=== PATIENT | male | born 1980 | race American Indian/Alaskan Native ===

== ENCOUNTER 2017-08-13 16:32 | Emergency (ER) | payer SELFPAY ==
[2017-08-13 17:09] VITALS: BP 121/79
[2017-08-13] MEDS ORDERED: MOTRIN PO ONE (19:03)
--- NOTE | 2017-08-13 19:03 | Emergency Department Report ---
Blank Doc - Documentation Documentation: Patient is a 37-year-old black male presenting with left foot pain. Patient states almost a week ago palate dropped on his foot he has pain at the base of the great toe. Patient still is able to wear shoes and can walk produces pain is getting worse. X-ray be done to rule out avulsion fracture.
--- NOTE | 2017-08-13 21:04 | XRay Report ---
FINAL REPORT PROCEDURE: XR FOOT 3+V LT TECHNIQUE: LEFT foot radiographs, AP, lateral, and oblique views. CPT 02895 HISTORY: crush injury at base of great toe, LEFT FOOT COMPARISON: No prior studies are available for comparison. FINDINGS: Fracture (s) and/or Dislocation(s): None . Alignment: Normal . Joint space(s): Normal . Soft tissues: Normal . Bone mineralization: Normal . Foreign bodies: None . Calcaneal spurring: None . IMPRESSION: Normal Examination .
--- NOTE | 2017-08-13 21:13 | Emergency Department Report ---
ED Extremity Problem HPI - General Chief complaint: Extremity Injury, Lower Stated complaint: PAIN IN LEFT BIG TOE Time Seen by Provider: 08/13/17 18:51 Source: patient Mode of arrival: Ambulatory Limitations: No Limitations - History of Present Illness Initial comments: Patient is a 37-year-old black male presenting with left foot pain. Patient states almost a week ago palate dropped on his foot he has pain at the base of the great toe. Patient still is able to wear shoes and can walk produces pain is getting worse. X-ray be done to rule out avulsion fracture. MD Complaint: extremity pain, extremity swelling -: week(s) (1) Location: left History of Same: No -: Yes arthralgia Radiation: none Severity scale (0 -10): 3 Quality: aching Consistency: intermittent Improves with: rest Worsens with: walking Associated Symptoms: denies other symptoms - Related Data Previous Rx's Medication Instructions Recorded Last Taken Type Ibuprofen [Motrin 800 MG tab] 800 mg PO Q8HR PRN #30 tablet 08/13/17 Unknown Rx Allergies Allergy/AdvReac Type Severity Reaction Status Date / Time No Known Allergies Allergy Unverified 08/13/17 17:05 ED Review of Systems ROS: Stated complaint: PAIN IN LEFT BIG TOE Other details as noted in HPI Comment: All other systems reviewed and negative Musculoskeletal: joint swelling, arthralgia ED Past Medical Hx - Past Medical History Previous Medical History?: No - Surgical History Past Surgical History?: Yes Additional Surgical History: RIGHT HAND SURGERY - Social History Smoking Status: Current Every Day Smoker Substance Use Type: Alcohol - Medications Home Medications: Home Medications Medication Instructions Recorded Confirmed Last Taken Type Ibuprofen [Motrin 800 MG tab] 800 mg PO Q8HR PRN #30 tablet 08/13/17 Unknown Rx ED Physical Exam - General Limitations: No Limitations General appearance: alert, in no apparent distress - Head Head exam: Present: atraumatic, normocephalic - Expanded Lower Extremity Exam Right Foot/Toe exam: Present: normal inspection, full ROM, tenderness (first metatarsal ). Absent: swelling, abrasion Neuro vascular tendon exam: Present: no vascular compromise. Absent: pulse deficit, extremity cold to touch, pallor Gait: Positive: observed and normal - Neurological Exam Neurological exam: Present: alert, oriented X3 - Psychiatric Psychiatric exam: Present: normal affect, normal mood - Skin Skin exam: Present: warm, dry, intact, normal color. Absent: rash ED Course Vital Signs 08/13/17 17:05 Temperature 98.5 F Pulse Rate 76 Respiratory 18 Rate Blood Pressure 121/79 O2 Sat by Pulse 99 Oximetry ED Medical Decision Making - Radiology Data Radiology results: report reviewed, image reviewed FINDINGS: Fracture (s) and/or Dislocation(s): None . Alignment: Normal . Joint space(s): Normal . Soft tissues: Normal . Bone mineralization: Normal . Foreign bodies: None . Calcaneal spurring: None . IMPRESSION: Normal Examination . Transcribed By: [facility] Dictated By: MELISSA OTERO Electronically Authenticated By: MELISSA OTERO Signed Date/Time: 08/13/172058 DD/ 58 TD/TT: 08/13/172058 - Medical Decision Making Patient has been evaluated but this provider as well as Dr. Valladares. X-ray of foot shows no abnormalities/normal examination. This patient he can take ibuprofen for pain. He can follow primary care provider if symptoms persist or gets worse. Critical care attestation.: If time is entered above; I have spent that time in minutes in the direct care of this critically ill patient, excluding procedure time. ED Disposition Clinical Impression: Contusion of foot, right Qualifiers: Encounter type: initial encounter Qualified Code(s): S90.31XA - Contusion of right foot, initial encounter Disposition: DC-01 TO HOME OR SELFCARE Is pt being admited?: No Does the pt Need Aspirin: No Condition: Stable Instructions: Foot Contusion (ED) Additional Instructions: Please take ibuprofen as prescribed. If symptoms persist or gets worse please follow up with her primary care provider. Prescriptions: Ibuprofen [Motrin 800 MG tab] 800 mg PO Q8HR PRN #30 tablet PRN Reason: Pain Referrals: [facility] [Provider Group] - 3-5 Days Forms: Work/School Release Form(ED)
== END 2017-08-13 21:30 | disposition home or self-care (01) ==
LOC: ED 16:32
DX: S90.31XA Contusion of right foot, initial encounter (principal); F17.200 Nicotine dependence, unspecified, uncomplicated; X58.XXXA Exposure to other specified factors, initial encounter; Y93.89 Activity, other specified; Y92.89 Other specified places as the place of occurrence of the external cause; Y99.8 Other external cause status
CPT/HCPCS: 99283

== ENCOUNTER 2019-01-01 11:02 | Emergency (ER) | payer SELFPAY ==
[2019-01-01 11:26] VITALS: BP 137/83
--- NOTE | 2019-01-01 11:28 | Event Note ---
ED Screening Note Date of service: 01/01/19 Time: 11:24 ED Screening Note: This is a 38 y.o. M. that presents to the ER feeling stressed out. Patient states his father last week and he is stressed out mentally and seeking help. Reports feeling weak, tired, and restless. Current smoker. Denies SI/HI. This initial assessment/diagnostic orders/clinical plan/treatment(s) is/are subject to change based on patients health status, clinical progression and re- assessment by fellow clinical providers in the ED. Further treatment and workup at subsequent clinical providers discretion. Patient/guardian urged not to elope from the ED as their condition may be serious if not clinically assessed and managed. Initial orders include:
[2019-01-01 12:50] LABS: Hematocrit 44.1 % (35.5-45.6); Hemoglobin 14.7 gm/dl (11.8-15.2); Mean Corpuscular HGB Conc 33 % (32-34); Mean Corpuscular Volume 94 fl (84-94); Platelet Count 204 K/mm3 (140-440); Red Cell Distribution Width 14.5 % (13.2-15.2)
[2019-01-01 13:12] LABS: Alanine Aminotransferase 10 units/L (7-56); Albumin 4.3 g/dL (3.9-5); BUN/Creatinine Ratio 14; Blood Urea Nitrogen 13 mg/dL (9-20); Calcium 9.1 mg/dL (8.4-10.2); Hemolysis Index 12
--- NOTE | 2019-01-01 14:53 | Emergency Department Report ---
ED General Adult HPI - General Chief complaint: Medical Clearance Stated complaint: EXHAUSTION/STRESS Time Seen by Provider: 01/01/19 11:23 Source: patient Mode of arrival: Ambulatory Limitations: No Limitations - History of Present Illness Initial comments: 38 y.o ramsey, who presents to ER with the complaints of feeling fatigue, weak. He states that he recently lost his father and has been under a lot of stress and pressure. He states he has been unable to sleep and working long hours. Pt. c/o dizziness, exhaustion and unwell feeling. Pt. denies SI or HI - Related Data Previous Rx's Medication Instructions Recorded Last Taken Type Ibuprofen [Motrin 800 MG tab] 800 mg PO Q8HR PRN #30 tablet 08/13/17 Unknown Rx Allergies Allergy/AdvReac Type Severity Reaction Status Date / Time No Known Allergies Allergy Unverified 08/13/17 17:05 ED Review of Systems ROS: Stated complaint: EXHAUSTION/STRESS Other details as noted in HPI Comment: All other systems reviewed and negative Respiratory: denies: cough, orthopnea Cardiovascular: denies: palpitations, dyspnea on exertion, orthopnea Genitourinary: denies: urgency, dysuria Musculoskeletal: denies: back pain Neurological: weakness ED Past Medical Hx - Past Medical History Previous Medical History?: No - Surgical History Past Surgical History?: Yes Additional Surgical History: RIGHT HAND SURGERY - Social History Smoking Status: Current Every Day Smoker Substance Use Type: None - Medications Home Medications: Home Medications Medication Instructions Recorded Confirmed Last Taken Type Ibuprofen [Motrin 800 MG tab] 800 mg PO Q8HR PRN #30 tablet 08/13/17 Unknown Rx ED Physical Exam - General Limitations: No Limitations General appearance: alert, in no apparent distress - Head Head exam: Present: atraumatic, normocephalic - Eye Eye exam: Present: normal appearance, PERRL, EOMI Pupils: Present: normal accommodation - ENT ENT exam: Present: normal exam, normal orophraynx - Neck Neck exam: Present: normal inspection - Respiratory Respiratory exam: Present: normal lung sounds bilaterally - Cardiovascular Cardiovascular Exam: Present: regular rate, normal rhythm - GI/Abdominal GI/Abdominal exam: Present: soft, normal bowel sounds - Neurological Exam Neurological exam: Present: alert, oriented X3, CN II-XII intact - Skin Skin exam: Present: warm ED Course Vital Signs 09/27/19 11:24 Temperature 97.8 F Pulse Rate 87 Respiratory 16 Rate Blood Pressure 137/83 [Left] O2 Sat by Pulse 99 Oximetry ED Medical Decision Making - Lab Data Result diagrams: 01/01/19 12:35 01/01/19 12:35 Critical care attestation.: If time is entered above; I have spent that time in minutes in the direct care of this critically ill patient, excluding procedure time. ED Disposition Clinical Impression: Generalized weakness, Dysthymia Disposition: DC-01 TO HOME OR SELFCARE Is pt being admited?: No Does the pt Need Aspirin: No Condition: Stable Instructions: Weakness (ED), Fatigue (ED) Referrals: PRIMARY CARE, [Primary Care Provider] - 3-5 Days Forms: Work/School Release Form(ED)
[2019-01-01 15:05] LABS: Bilirubin,Urine NEG (Negative); Blood,Urine SM (Negative); Color,Urine Yellow (Yellow); Mucus,Urine FEW /HPF; Protein,Urine <15 mg/dL mg/dL (Negative); Urobilinogen,Urine < 2.0 mg/dL (<2.0)
[2019-01-01 15:12] LABS: Amphetamine Screen,Urine PRESUMPTIVE NEGATIVE; Benzodiazepines Screen,Urine PRESUMPTIVE NEGATIVE; Cannabinoid Screen,Urine PRESUMPTIVE NEGATIVE; Cocaine Screen,Urine PRESUMPTIVE NEGATIVE; Methadone Screen,Urine PRESUMPTIVE NEGATIVE; Opiate Screen,Urine PRESUMPTIVE NEGATIVE
== END 2019-01-01 15:06 | disposition home or self-care (01) ==
LOC: ED 11:02
DX: F34.1 Dysthymic disorder (principal); R53.1 Weakness; F17.200 Nicotine dependence, unspecified, uncomplicated; Z98.890 Other specified postprocedural states
CPT/HCPCS: 36415; 80053; 80307; 80320; 81001; 84443; 85027; G0480

== ENCOUNTER 2020-03-15 16:50 | Emergency (ER) | payer SELFPAY ==
[2020-03-15 17:00] VITALS: BP 120/84
--- NOTE | 2020-03-15 17:48 | Emergency Department Report ---
Chief Complaint: Weakness Stated Complaint: NOT FEELING WELL, NEED TO BE SCREENED Time Seen by Provider: 03/15/20 17:42 - HPI History of Present Illness: Patient is a 39-year-old male presents emergency room with complaints of left shoulder pain that began a few days ago. 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 He denies any fall or injury. He denies any numbness or weakness. He denies an y neck pain, chest pain, shortness of breath. He is ambulatory without difficulty. He denies ever injuring the past. No past medical history. No allergies to medications. Vitals are normal On exam: Non toxic appearing, no acute distress atraumatic, normocephalic normal appearance of the eyes,, EOMI, no periorbital edema or ecchymosis moist mucus membranes regular heart rate and rhythm, no gallops, no rubs, no murmurs breath sounds are clear bilaterally, no w/r/r Full range of motion of the left upper extremity, he has pain elicited upon full flexion of the shoulder, no bony tenderness palpation, no sulcus sign, clavicles are equal, no clavicular tenderness palpation, no edema, no erythema, no skin changes, neurovascularly intact A&O x4, no focal neuro deficit skin is warm, dry, intact Symptoms likely related to rotator cuff tendinitis as patient has pain upon lifting the arm above the head He has no clinical signs of acute fracture or dislocation, he has had no trauma No signs of septic joint or DVT. No signs of arterial occlusion This is musculoskeletal pain worse with movement Advised patient May alternate Tylenol or ibuprofen as needed for discomfort. May use ice pack, heating pad, rest, Epsom salt bath. Avoid lifting above the head. Follow-up with orthopedic doctor. Follow-up with a primary care doctor. Return to emergency room for any new or worsening symptoms. Patient referred to the appropriate resources Discussed very strict return precautions with patient Medical screening examination performed and there is no threat to life or limb at this time - Exam Vital Signs: Vital Signs 03/15/20 16:57 Temperature 98.1 F Pulse Rate 83 Respiratory 18 Rate Blood Pressure 120/84 O2 Sat by Pulse 95 Oximetry MSE screening note: Focused history and physical exam performed. ED Disposition for MSE Clinical Impression: Left shoulder pain Qualifiers: Chronicity: acute Qualified Code(s): M25.512 - Pain in left shoulder Disposition: MED SCREENING EXAM-LEFT Is pt being admited?: No Does the pt Need Aspirin: No Condition: Stable Instructions: Rotator Cuff Tendinitis Additional Instructions: May alternate Tylenol or ibuprofen as needed for discomfort. May use ice pack, heating pad, rest, Epsom salt bath. Avoid lifting above the head. Follow-up with orthopedic doctor. Follow-up with a primary care doctor. Return to emergency room for any new or worsening symptoms. Referrals: SARAH EVERETT MD [Staff Physician] - 2-3 Days [facility] [Provider Group] - 2-3 Days REANNA ZIMMERMAN MD [Staff Physician] - 2-[address] [facility] [Provider Group] - 2-3 Days Time of Disposition: 17:47 Print Language: POLISH
== END 2020-03-15 18:00 | disposition left against medical advice (07) ==
LOC: ED 16:50
DX: M25.512 Pain in left shoulder (principal); Z53.21 Procedure and treatment not carried out due to patient leaving prior to being seen by health care provider

== ENCOUNTER 2020-10-31 16:56 | Emergency (ER) | payer SELFPAY ==
[2020-10-31 18:12] VITALS: BP 126/90
--- NOTE | 2020-10-31 18:51 | Emergency Department Report ---
Chief Complaint: Dyspnea/Respdistress Stated Complaint: CHILLS FOR 3 DAYS Time Seen by Provider: 10/31/20 18:49 - HPI History of Present Illness: Patient is a 40-year-old male presents emergency room stating that he wants clearance to go back to work. He states that he called out of work 3 days ago secondary to chills, generalized body aches, subjective fever, dry cough. He states his symptoms have resolved now and he just wants to be cleared to return to work because his work advised him that he needed to be seen prior to returning. He is currently asymptomatic. No past medical history. No allergies to medications. He is a smoker. Vitals are normal, he is afebrile, no hypoxia On exam: Non toxic appearing, no acute distress atraumatic, normocephalic normal appearance of the eyes, EOMI, no periorbital edema or ecchymosis moist mucus membranes regular heart rate and rhythm, no gallops, no rubs, no murmurs breath sounds are clear bilaterally, no w/r/r, no respiratory distress, no accessory muscle use, no stridor A&O x4, no focal neuro deficit skin is warm, dry, intact Patient is presenting for work clearance He states he called out of work 3 days ago due to URI symptoms He reports that he is currently asymptomatic Advised patient he would need to follow-up with a primary care doctor for work clearance Advised patient Please follow-up with your primary care doctor. Recommend for you to get outpatient COVID-19 testing and quarantine as necessary, please follow CDC and your jobs guidelines. Return to emergency room for any new or worsening symptoms. Medical screen examination performed and there is no threat to life or limb at this time - Exam Vital Signs: Vital Signs 10/31/20 18:07 Temperature 98.8 F Pulse Rate 76 Respiratory 18 Rate Blood Pressure 126/90 O2 Sat by Pulse 100 Oximetry MSE screening note: Focused history and physical exam performed. ED Disposition for MSE Clinical Impression: Encounter for medical screening examination Disposition: DC-01 TO HOME OR SELFCARE Is pt being admited?: No Does the pt Need Aspirin: No Condition: Stable Additional Instructions: Please follow-up with your primary care doctor. Recommend for you to get outpatient COVID-19 testing and quarantine as necessary, please follow CDC and your jobs guidelines. Return to emergency room for any new or worsening symptoms. Referrals: REANNA ZIMMERMAN MD [Staff Physician] - 2-3 Days [facility] [Provider Group] - 2-3 Days Time of Disposition: 18:50 Print Language: DANISH
== END 2020-10-31 20:20 | disposition home or self-care (01) ==
LOC: ED 16:56
DX: Z13.9 Encounter for screening, unspecified (principal)
CPT/HCPCS: 99281